=== PATIENT | female | born 1950 | race Caucasian/White ===

== ENCOUNTER 2022-05-08 09:35 | Day surgery (SDC) | payer MEDICARE, SELFPAY ==
--- NOTE | 2022-05-08 06:37 | W.ANESPRE ---
General Info Date of Service Date Performed: 05/08/22 Height: 5 ft 4 in Weight: 74.843 kg Body Mass Index (BMI): 28.3 Surgical Procedure: Operation Date: 05/08/22 12:40 Proposed Procedure Side Surgeon p Cataract Extraction with IOL Implant Right Arun Hutchins MD Meds Allergies and Home Medications Allergies Allergy/AdvReac Type Severity Reaction Status Date / Time chymopapain AdvReac Severe Other (See Unverified 05/08/22 10:09 Comment) Home Medication Medication Instructions Recorded amlodipine 10 mg tablet 10 mg PO DAILY 05/04/22 apixaban 5 mg tablet (Eliquis) 5 mg PO BID 05/04/22 doxazosin 2 mg tablet 2 mg PO DAILY 05/04/22 esomeprazole magnesium 40 mg 40 mg PO HS 05/04/22 capsule,delayed release flecainide 50 mg tablet 50 mg PO Q12H 05/04/22 losartan 100 mg tablet 100 mg PO DAILY 05/04/22 metoprolol tartrate 25 mg tablet 12.5 mg PO BID 05/04/22 nitroglycerin 0.4 mg sublingual 0.4 mg sublingual DIRECTED 05/04/22 tablet Current Visit Medications: Current Medications Generic Name Dose Route Start Last Admin Trade Name Freq PRN Reason Stop Dose Admin Acetaminophen 1,000 mg 05/08/22 06:00 Acetaminophen 500 Mg Tab PO Q4H PRN PRN Miscellaneous Medication 0 ml 05/08/22 06:00 Tropicam./Phenyleph. (1/2.5%) 5 Ml Btl OD DIRECTED BARBARA Miscellaneous Medication 0 ml 05/08/22 06:00 Prednisolone 1%, Moxifloxacin 0.5%, Nepafenac 0.1% 5ml Btl OD DIRECTED BARBARA Tetracaine HCl 0 ml 05/08/22 06:00 Tetracaine 0.5% 4 Ml Btl OD DIRECTED BARBARA PFSH Active Problems Active Problems: Problem Status Onset Code Nuclear age-related cataract, right eye H25.11 Posterior subcapsular age-related cataract, right eye H25.041 Medical History Medical History (Updated 05/08/22 @ 10:20 by Heather Keyes) A-fib Cataract Essential hypertension History of claustrophobia MRI machines Hx of hiatal hernia Surgical History Surgical History History of back surgery lumbar back fusion History of cardiac radiofrequency ablation 2019 History of esophagogastroduodenoscopy (EGD) History of removal of ovarian cyst History of right oophorectomy Hx of cholecystectomy Hx of colonoscopy Tobacco Smoking/Tobacco Use Status: Never Alcohol Alcohol Intake: current Alcohol intake frequency: a few times a week Substance Use Substance use: Never Substance use type: does not use Vital Signs and Lab Results Lab Results Blood Type / Crossmatch: No Data to Display Complete Blood Count: No Data to Display Complete Metabolic Panel: No Data to Display Liver Function Panel: No Data to Display Coagulation Panel: No Data to Display Cardiac Panel: No Data to Display Arterial Blood Gas: No Data to Display Venous Blood Gas: No Data to Display Pancreas Panel: No Data to Display Thyroid Panel: No Data to Display Infectious Disease: No Data to Display Blood Cultures: No Data to Display Toxicology Panel: No Data to Display Anesthesia Assessment and Plan Anesthesia History Personal History: No History of Anesthesia Complications Family History: No Family History of Anesthesia Complications Exercise Tolerance Exercise Tolerance: Metabolic Equivalents>4 Cardiac & Pulmonary Exam Cardiac Exam: Normal S1/S2 Heart Sounds Pulmonary Exam: Clear Bilateral Breath Sounds Implantable Cardiac Device Does patient have a Pacemaker or an ICD?: No Airway Exam Known Difficult Airway: No Mallampati Class: 2 Mouth Opening: Normal (> 3cm) Thyromental Distance: Greater than 3 cm Neck Range of Motion: Full ROM Neck Circumference: Normal Teeth Condition: Normal Dentition ASA Classification ASA Score: ASA 2 Emergency Case?: No NPO Status NPO Status: NPO Clears >2 hours, Solids >8 hours Anesthesia Plan Resuscitation Status: Full Code Anesthesia Technique: MAC Anesthesia Airway Planned: Natural Airway Monitors Used: Standard Monitors Preoperative Comments:: 72 yo female for cataract removal. Sig PMHx: HTN (amlodipine, losartan), afib/ablation (ablated in 2019, flecainide, metoprolol, apixaban), lumbar fusion, GERD (nexium, well controlled). Has NTG rx, never uses it. Would like MKO.
[2022-05-08 09:45] VITALS: BP 155/52; PULSE 59; RESP 16; TEMP 36.2; O2SAT 100
[2022-05-08] MEDS: Tropicam./Phenyleph. (1/2.5%) 5 ML BTL OD ×3 (10:20→10:33)
[2022-05-08 10:21] VITALS: BMI 28.3
[2022-05-08] MEDS: Tetracaine 0.5% 4 ML BTL OD (11:15)
[2022-05-08] MEDS: Balanced Salt Soln.-PLUS 500 ML BAG (11:16)
[2022-05-08] MEDS: Duovisc Viscoelastic System EACH 1 EACH (11:20)
[2022-05-08] MEDS: Lidocaine 2% Jelly 6 ML SYR (11:22)
[2022-05-08] MEDS: Lidocaine 1% Pres-Free 5 ML VIAL (11:22)
[2022-05-08] MEDS: Phenylephrine/Lidocaine (15/10) MG/ML 1 ML VIAL (11:23)
[2022-05-08] MEDS: Povidone-Iodine Ophth 30 ML BTL (11:24)
[2022-05-08 11:28] VITALS: BP 133/102; PULSE 55; RESP 16; TEMP 36.3; O2SAT 99
--- NOTE | 2022-05-08 11:28 | W.PM.DSUDISC ---
Date of service: 05/08/22 Time of Service: 11:28 Discharge Plan Disposition Patient Disposition: Home Discharge Details Attending Provider: Arun Hutchins Primary Care Provider: Oswaldo Rodriguez Home Meds and New Rx's Prescriptions: No Action amlodipine 10 mg Tablet 10 mg PO DAILY esomeprazole magnesium 40 mg Capsule,Delayed Release(Dr/Ec) 40 mg PO HS flecainide 50 mg Tablet 50 mg PO Q12H nitroglycerin 0.4 mg Tablet, Sublingual 0.4 mg sublingual DIRECTED losartan 100 mg Tablet 100 mg PO DAILY doxazosin 2 mg Tablet 2 mg PO DAILY metoprolol tartrate 25 mg Tablet 12.5 mg PO BID Eliquis 5 mg Tablet 5 mg PO BID Discharge Instructions Stand Alone Forms: Post-op Topical CataractAby (DSU) Discharge Orders Discharge Orders: Discharge Order (Routine); Ordered 05/08/22 Ordered By: Arun Hutchins DS: Diagnosis Discharge Diagnosis (1) Nuclear age-related cataract, right eye: Status: Resolved (2) Posterior subcapsular age-related cataract, right eye: Status: Resolved
--- NOTE | 2022-05-08 11:29 | W.PM.OP ---
Date of service: 05/08/22 Time of Service: 11:29 Operative Note Operative Note DATE OF PROCEDURE: 05/08/22 PRE-OP DIAGNOSIS: Nuclear/posterior subcapsular cataract, right eye POST-OP DIAGNOSIS: same PROCEDURE: Cataract extraction using phacoemulsification with intraocular lens implant, right eye SURGEON: Arun Hutchins ANESTHESIA TYPE: Local By Surgeon and MAC Refer to Anesthesia Record ESTIMATED BLOOD LOSS: 0 PATHOLOGY: none sent COMPLICATIONS: None Patient was transported to: same day Patient's condition: stable Implants: Jose & Jose Tecnis Eyhance [id number] Indications: Progressive visual loss due to cataract, right eye Procedure Description: CATARACT SURGERY OPERATIVE REPORT PREOPERATIVE DIAGNOSIS: 1. Nuclear/posterior subcapsular cataract, right eye POSTOPERATIVE DIAGNOSIS: Same OPERATION: 1. Cataract extraction using phacoemulsification with posterior chamber intraocular lens implant, right eye. IOL: IOL Wire Products Inspector/Model: Jose & Jose Tecnis Eyhance [id number] IOL Power: + 20.0 diopters IOL Serial Number: [id number] Optic Diameter: 6.0mm Haptic/Overall Diameter: 13.0mm PHACO INFO: Benja Ziptaskurion Vision System with OZil and Active Fluidics Cumulative Dispersed Energy (CDE): 6.23 seconds SURGEON: Arun Hutchins MD, ESTEPHANIA ANESTHESIA: Monitored Anesthesia Care (MAC), with local sub-tenon's anesthetic infiltration COMPLICATIONS: None SPECIMENS: None INDICATIONS FOR PROCEDURE: The patient is a 72-year-old lady with history of myopia who has developed a significant nuclear/posterior subcapsular cataract in the right 9. She is significantly symptomatic that she desires cataract surgery and attempt to improve and maximize her vision. She desires to arrange remain myopic postoperatively. Postoperative refractive target is -2.0 diopters. 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 PROCEDURE: The correct surgical eye was identified and marked as the right eye and the pupil was dilated in the preoperative area using mydriatics and cycloplegics. The dilated pupil size was 4.5 mm. Oral sedation was administered in the form of an Imprimis MKO Melt (midazolam 3mg/ketamine 25mg/ondansetron 2mg). . The patient was brought to the operating room where cardiopulmonary monitoring was instituted and surgical time-out was performed, confirming the correct operative eye and IOL power. Topical anesthesia was administered and ophthalmic povidone-iodine 5% was instilled into the conjunctival fornices. Lidocaine gel was applied to the cornea and the deedee-ocular area was prepped with Betadine 10% solution and draped in the usual sterile fashion for intraocular surgery, including an aperture drape. A Tegaderm transparent film dressing was cut in half and used to cover the lashes and lid margins. Care was taken to sequester the lashes and lid margins under the Tegaderm dressing. A lid speculum was placed between the lids of the operative eye and the Benja LuxOR Revalia operating microscope was maneuvered into position. Sarwat scissors were then used to make a conjunctival buttonhole approximately 6mm posterior to the limbus in the inferonasal quadrant. Blunt dissection was carried out to expose bare sclera, and a blunt-tipped sub-tenon?s anesthesia cannula was introduced and passed posteriorly along the globe where non-preserved plain lidocaine was injected into posterior sub-Tenon?s space. A sideport knife was used to make a paracentesis port inferotemporally. Intraocular phenylephrine/lidocaine was injected into the anterior chamber. Fitzwilliam blue G was then injected into the anterior chamber and allowed to sit for 18 to 20 seconds. The dye was then irrigated out with balanced salt solution. The anterior chamber was filled with viscoelastic. Viscoat was used, and additional 1.0 mm of pupillary dilation was achieved with viscoelastic. A keratome knife was used to construct a 2-plane near-clear corneal tunnel extending 2.0mm into clear cornea superiortemporally. A flap was raised on the anterior capsule and capsulorhexis forceps were used to complete a continuous curvilinear capsulorhexis of 5.0 mm. Balanced salt solution was then used to perform cortical cleaving hydrodissection and nuclear hydrodelineation until the lens could be freely rotated within the capsular bag. The lens nucleus was then disassembled and removed within the capsular bag and iris plane using phacoemulsification. Residual cortical material was removed using the I/A handpiece. The posterior capsule was carefully polished to remove as much residual lens epithelial cells as safely possible. The capsular bag was then inflated and the anterior chamber deepened with viscoelastic. The lens implant described above was inserted into the capsular bag using the Jose and Pita Simplicity pre-loaded injector. A Kuglen hook was used to dial the IOL into position. Residual viscoelastic was then removed first from posterior to the IOL, then from the anterior chamber using the I/A handpiece. The lens implant was noted to center nicely within the capsular bag. The incisions were stromally hydrated, and the anterior chamber was reformed using BSS. Then 0.5cc of moxifloxacin 1.0mg/ml were injected into the capsular bag and anterior chamber. The incisions were checked with a Weck spear and found to be secure. Several drops of ophthalmic povidone-iodine 5% were then applied to the eye followed by two drops of Imprimis combination prednisolone/moxifloxacin/nepafenac solution. The drapes were removed and a clear plastic protective eye shield was placed over the eye. The patient was then returned to Same Day Surgery in stable condition.
--- NOTE | 2022-05-08 11:43 | W.ANESPOSTOP ---
Postoperative Evaluation Date, Time and Location Date Performed: 05/08/22 Time Performed: 11:43 Patient Location: Day Surgery Unit Vital Signs Most Recent Imported Vital Signs: Most Recent Vital Signs Temp Pulse Resp BP Pulse Ox 36.3 C L 55 L 16 133/102 H 99 05/08/22 11:28 05/08/22 11:28 05/08/22 11:28 05/08/22 11:28 05/08/22 11:28 Pain Score Most Recent Pain Score: Most Recent Pain Score Pain Level 0 05/08/22 11:28 Assessment Mental Status: Awake (Alert & Oriented to Patient Baseline) Airway and Respiratory Function: Patent airway with normal (patient baseline) respiratory exam Cardiovascular Function: Hemodynamically Stable Hydration Status: Adequately Hydrated Nausea & Vomiting: No Nausea or Vomiting Pain: Pt. Denies Any Pain Peripheral Nerve Block: Patient did not receive a nerve block
[2022-05-08 11:55] VITALS: BP 117/57; PULSE 64; RESP 16; TEMP 36.4; O2SAT 100
== END 2022-05-08 12:01 | disposition home or self-care (01) ==
LOC: SUR 09:35
PROVIDERS: PCP Family Medicine; Visit Provider Ophthalmology
PROC: (CPT 66984; principal; 2022-05-08 12:30)
DX: H25.041 Posterior subcapsular polar age-related cataract, right eye
CPT/HCPCS: 66984; V2632

== ENCOUNTER 2022-05-22 08:02 | Day surgery (SDC) | payer MEDICARE, SELFPAY ==
[2022-05-22] MEDS: Tropicam./Phenyleph. (1/2.5%) 5 ML BTL OS ×3 (08:40→08:54)
[2022-05-22 08:41] VITALS: BP 130/60; PULSE 55; RESP 16; TEMP 36.2; O2SAT 100
--- NOTE | 2022-05-22 09:19 | W.ANESPRE ---
General Info Date of Service Date Performed: 05/22/22 Height: 5 ft 4 in Weight: 74.8 kg Body Mass Index (BMI): 28.3 Surgical Procedure: Operation Date: 05/22/22 10:40 Proposed Procedure Side Surgeon p Cataract Extraction with IOL Implant Left Arun Hutchins MD Meds Allergies and Home Medications Allergies Allergy/AdvReac Type Severity Reaction Status Date / Time chymopapain AdvReac Severe Other (See Unverified 05/22/22 08:36 Comment) Home Medication Medication Instructions Recorded amlodipine 10 mg tablet 10 mg PO DAILY 05/04/22 apixaban 5 mg tablet (Eliquis) 5 mg PO BID 05/04/22 doxazosin 2 mg tablet 2 mg PO DAILY 05/04/22 esomeprazole magnesium 40 mg 40 mg PO HS 05/04/22 capsule,delayed release flecainide 50 mg tablet 50 mg PO Q12H 05/04/22 losartan 100 mg tablet 100 mg PO DAILY 05/04/22 metoprolol tartrate 25 mg tablet 12.5 mg PO BID 05/04/22 nitroglycerin 0.4 mg sublingual 0.4 mg sublingual DIRECTED 05/04/22 tablet Current Visit Medications: Current Medications Generic Name Dose Route Start Last Admin Trade Name Freq PRN Reason Stop Dose Admin Acetaminophen 1,000 mg 05/22/22 06:00 Acetaminophen 500 Mg Tab PO Q4H PRN PRN Miscellaneous Medication 0 ml 05/22/22 06:00 05/22/22 08:54 Tropicam./Phenyleph. (1/2.5%) 5 Ml Btl OS 1 drp DIRECTED BARBARA Administration Miscellaneous Medication 0 ml 05/22/22 06:00 Prednisolone 1%, Moxifloxacin 0.5%, Nepafenac 0.1% 5ml Btl OS DIRECTED BARBARA Tetracaine HCl 0 ml 05/22/22 06:00 Tetracaine 0.5% 4 Ml Btl OS DIRECTED BARBARA PFSH Active Problems Active Problems: Problem Status Onset Code Cortical cataract of left eye H26.9 Nuclear sclerotic cataract of left eye H25.12 Nuclear age-related cataract, right eye H25.11 Posterior subcapsular age-related cataract, right eye H25.041 Medical History Medical History A-fib Cataract Essential hypertension History of claustrophobia MRI machines Hx of hiatal hernia Surgical History Surgical History History of back surgery lumbar back fusion History of cardiac radiofrequency ablation 2020 History of esophagogastroduodenoscopy (EGD) History of removal of ovarian cyst History of right oophorectomy Hx of cholecystectomy Hx of colonoscopy Tobacco Smoking/Tobacco Use Status: Never Alcohol Alcohol Intake: current Alcohol intake frequency: a few times a week Substance Use Substance use: Never Substance use type: does not use Vital Signs and Lab Results Vital Signs Most Recent Vital Signs in EMR: Most Recent Vital Signs Temp Pulse Resp BP Pulse Ox 36.2 C L 55 L 16 130/60 100 05/22/22 08:41 05/22/22 08:41 05/22/22 08:41 05/22/22 08:41 05/22/22 08:41 Lab Results Blood Type / Crossmatch: No Data to Display Complete Blood Count: No Data to Display Complete Metabolic Panel: No Data to Display Liver Function Panel: No Data to Display Coagulation Panel: No Data to Display Cardiac Panel: No Data to Display Arterial Blood Gas: No Data to Display Venous Blood Gas: No Data to Display Pancreas Panel: No Data to Display Thyroid Panel: No Data to Display Infectious Disease: No Data to Display Blood Cultures: No Data to Display Toxicology Panel: No Data to Display Anesthesia Assessment and Plan Anesthesia History Personal History: No History of Anesthesia Complications Family History: No Family History of Anesthesia Complications Exercise Tolerance Exercise Tolerance: Metabolic Equivalents>4 Cardiac & Pulmonary Exam Cardiac Exam: Normal S1/S2 Heart Sounds Pulmonary Exam: Clear Bilateral Breath Sounds Implantable Cardiac Device Does patient have a Pacemaker or an ICD?: No Airway Exam Known Difficult Airway: No Mallampati Class: 2 Mouth Opening: Normal (> 3cm) Thyromental Distance: Greater than 3 cm Neck Range of Motion: Full ROM Neck Circumference: Normal Teeth Condition: Normal Dentition ASA Classification ASA Score: ASA 3 Emergency Case?: No NPO Status NPO Status: NPO Clears >2 hours, Solids >8 hours Anesthesia Plan Resuscitation Status: Full Code Anesthesia Technique: MAC Anesthesia Airway Planned: Natural Airway Monitors Used: Standard Monitors
[2022-05-22 09:22] VITALS: BMI 28.3
[2022-05-22] MEDS: Tetracaine 0.5% 4 ML BTL OS (09:57)
[2022-05-22] MEDS: Balanced Salt Soln.-PLUS 500 ML BAG (10:05)
[2022-05-22] MEDS: Duovisc Viscoelastic System EACH 1 EACH (10:05)
[2022-05-22] MEDS: Phenylephrine/Lidocaine (15/10) MG/ML 1 ML VIAL (10:06)
[2022-05-22] MEDS: Lidocaine 1% Pres-Free 5 ML VIAL (10:06)
[2022-05-22] MEDS: Povidone-Iodine Ophth 30 ML BTL (10:07)
[2022-05-22 10:20] VITALS: BP 145/55; PULSE 55; RESP 18; TEMP 36.3; O2SAT 97
--- NOTE | 2022-05-22 10:20 | W.PM.DSUDISC ---
Date of service: 05/22/22 Time of Service: 10:20 Discharge Plan Disposition Patient Disposition: Home Discharge Details Attending Provider: Arun Hutchins Primary Care Provider: Oswaldo Rodriguez Home Meds and New Rx's Prescriptions: No Action amlodipine 10 mg Tablet 10 mg PO DAILY esomeprazole magnesium 40 mg Capsule,Delayed Release(Dr/Ec) 40 mg PO HS flecainide 50 mg Tablet 50 mg PO Q12H nitroglycerin 0.4 mg Tablet, Sublingual 0.4 mg sublingual DIRECTED losartan 100 mg Tablet 100 mg PO DAILY doxazosin 2 mg Tablet 2 mg PO DAILY metoprolol tartrate 25 mg Tablet 12.5 mg PO BID Eliquis 5 mg Tablet 5 mg PO BID Discharge Instructions Stand Alone Forms: Post-op Topical Cataract, Aby Schneider (DSU) Discharge Orders Discharge Orders: Discharge Order (Routine); Ordered 05/22/22 Ordered By: Arun Hutchins DS: Diagnosis Discharge Diagnosis (1) Cortical cataract of left eye: Status: Resolved (2) Nuclear sclerotic cataract of left eye: Status: Resolved
--- NOTE | 2022-05-22 10:21 | W.PM.OP ---
Date of service: 05/22/22 Time of Service: 10:21 Operative Note Operative Note DATE OF PROCEDURE: 05/22/22 PRE-OP DIAGNOSIS: Nuclear/cortical cataract, left eye POST-OP DIAGNOSIS: same PROCEDURE: Cataract extraction using phacoemulsification with intraocular lens implant, left eye SURGEON: Arun Hutchins ANESTHESIA TYPE: Local By Surgeon and MAC Refer to Anesthesia Record PATHOLOGY: none sent COMPLICATIONS: None Patient was transported to: same day Patient's condition: stable Implants: Jose and Jose Tecnis Eyhance DIB00 Indications: Progressive decreased vision due to cataract, left eye Procedure Description: CATARACT SURGERY OPERATIVE REPORT PREOPERATIVE DIAGNOSIS: 1. Nuclear/cortical cataract, left eye POSTOPERATIVE DIAGNOSIS: Same OPERATION: 1. Cataract extraction using phacoemulsification with posterior chamber intraocular lens implant, left eye. IOL: IOL Client Services Vice President/Model: Jose & Jose Tecnis Eyhance DIB00 IOL Power: + 19.5 diopters IOL Serial Number: [id number] Optic Diameter: 6.0 mm Haptic/Overall Diameter: 13.0 mm PHACO INFO: BenjaPixelSteam Vision System with OZil and Active Fluidics Cumulative Dispersed Energy (CDE): 5.78 seconds SURGEON: Arun Hutchins MD, ESTEPHANIA ANESTHESIA: Monitored A [facility] (MAC), with local sub-tenon's anesthetic infiltration COMPLICATIONS: None SPECIMENS: None INDICATIONS FOR PROCEDURE: The patient is a 72-year-old lady with history of diminished visual acuity in both eyes secondary to the development of bilateral cataracts. She has already undergone cataract surgery in the right eye and is doing well postoperatively. She has a history of myopia and does a lot of near work. She takes her glasses off to read. She desires to remain myopic postoperatively, postoperative refractive target is -2.50 diopters. PROCEDURE: The correct surgical eye was identified and marked as the left eye and the pupil was dilated in the preoperative area using mydriatics and cycloplegics. The dilated pupil size was 6.0 mm. The patient elected to proceed without oral sedation. The patient was brought to the operating room where cardiopulmonary monitoring was instituted and surgical time-out was performed, confirming the correct operative eye and IOL power. Topical anesthesia was administered and ophthalmic povidone-iodine 5% was instilled into the conjunctival fornices. Lidocaine gel was applied to the cornea and the deedee-ocular area was prepped with Betadine 10% solution and draped in the usual sterile fashion for intraocular surgery, including an aperture drape. A Tegaderm transparent film dressing was cut in half and used to cover the lashes and lid margins. Care was taken to sequester the lashes and lid margins under the Tegaderm dressing. A lid speculum was placed between the lids of the operative eye and the Benja LuxOR Revalia operating microscope was maneuvered into position. Sarwat scissors were then used to make a conjunctival buttonhole approximately 6mm posterior to the limbus in the inferonasal quadrant. Blunt dissection was carried out to expose bare sclera, and a blunt-tipped sub-tenon?s anesthesia cannula was introduced and passed posteriorly along the globe where non-preserved plain lidocaine was injected into posterior sub-Tenon?s space. A sideport knife was used to make a paracentesis port superiorly/superiortemporally. Intraocular phenylephrine/lidocaine was injected int the anterior chamber.. The anterior chamber was filled with viscoelastic. A keratome knife was used to construct a 2-plane near-clear corneal tunnel extending 2.0mm into clear cornea temporally. A flap was raised on the anterior capsule and capsulorhexis forceps were used to complete a continuous curvilinear capsulorhexis of 5.0 mm. Balanced salt solution was then used to perform cortical cleaving hydrodissection and nuclear hydrodelineation until the lens could be freely rotated within the capsular bag. The lens nucleus was then disassembled and removed within the capsular bag and iris plane using phacoemulsification. Residual cortical material was removed using the 45-degree angled silicone I/A tip with 0.3mm port. The posterior capsule was carefully polished to remove as much residual lens epithelial cells as safely possible. The capsular bag was then inflated and the anterior chamber deepened with viscoelastic. The lens implant described above was inserted into the capsular bag using the Jose and Jose Simplicity pre-loaded injector. . A Kuglen hook was used to dial the IOL into position. Residual viscoelastic was then removed first from posterior to the IOL, then from the anterior chamber using the I/A handpiece. The lens implant was noted to center nicely within the capsular bag. The incisions were stromally hydrated, and the anterior chamber was reformed using BSS. Then 0.5cc of moxifloxacin 1.0mg/ml were injected into the capsular bag and anterior chamber. The incisions were checked with a Weck spear and found to be secure. Several drops of ophthalmic povidone-iodine 5% were then applied to the eye followed by two drops of Imprimis combination prednisolone/moxifloxacin/nepafenac solution. The drapes were removed and a clear plastic protective eye shield was placed over the eye. The patient was then returned to Same Day Surgery in stable condition.
--- NOTE | 2022-05-22 10:35 | W.ANESPOSTOP ---
Postoperative Evaluation Date, Time and Location Date Performed: 05/22/22 Time Performed: 10:28 Patient Location: Day Surgery Unit Vital Signs Most Recent Imported Vital Signs: Most Recent Vital Signs Temp Pulse Resp BP Pulse Ox 36.3 C L 55 L 18 145/55 H 97 05/22/22 10:20 05/22/22 10:20 05/22/22 10:20 05/22/22 10:20 05/22/22 10:20 Pain Score Most Recent Pain Score: Most Recent Pain Score Pain Level 0 05/22/22 10:20 Assessment Mental Status: Awake (Alert & Oriented to Patient Baseline) Airway and Respiratory Function: Patent airway with normal (patient baseline) respiratory exam Cardiovascular Function: Hemodynamically Stable Hydration Status: Adequately Hydrated Nausea & Vomiting: No Nausea or Vomiting Pain: Pt. Denies Any Pain Peripheral Nerve Block: Patient did not receive a nerve block
== END 2022-05-22 10:37 | disposition home or self-care (01) ==
LOC: SUR 08:02
PROVIDERS: PCP Family Medicine; Visit Provider Ophthalmology
PROC: (CPT 66984; principal; 2022-05-22 10:30)
DX: H25.12 Age-related nuclear cataract, left eye
CPT/HCPCS: 66984; V2632